=== PATIENT | male | born 1960 | race Caucasian/White ===

== ENCOUNTER → 2016-11-28 | Outpatient (CLI) | payer OTHER ==
[~2016-11-28] MED LIST: COQ-10100 MG PO; OSTERA TABLET1 EACH PO
== END | disposition home or self-care (01) ==
LOC: ORTHO 01:51
DX: M17.12 Unilateral primary osteoarthritis, left knee (principal)

== ENCOUNTER → 2017-01-30 | Outpatient (CLI) | payer OTHER | END | disposition home or self-care (01) | LOC: CT 01-25 10:00 | DX: M17.12 Unilateral primary osteoarthritis, left knee (principal); M16.12 Unilateral primary osteoarthritis, left hip; M19.072 Primary osteoarthritis, left ankle and foot ==

== ENCOUNTER → 2017-02-10 | Outpatient (CLI) | payer OTHER ==
[2017-02-10 06:28] LABS: HEMOGLOBIN 13.5 g/dl (14.0-18.0); MEAN CORPUSCULAR HGB CONC 32.9 g/dl (33.0-37.0); MEAN PLATELET VOLUME 9.7 fl (9.6-12.3); RED BLOOD COUNT 4.66 10*6/uL (4.50-5.90); RED CELL DISTRI WIDTH 13.5 % (0-14.5)
[2017-02-10 06:55] LABS: ALBUMIN 3.5 gm/dl (3.1-4.5); ALKALINE PHOSPHATASE 79 U/L (45-117); BUN 11 mg/dl (7-24); CHLORIDE 103 mmol/L (98-107); CHOLESTEROL 195 mg/dL (<200); CREATININE 0.92 mg/dL (0.70-1.30); HDL CHOLESTEROL 70 mg/dl (40-60); LDL CHOLESTEROL 103 mg/dL (9-159); POTASSIUM 4.4 mmol/L (3.5-5.1); SGOT/AST 17 IU/L (3-35); SGPT/ALT 19 U/L (12-78); SODIUM 140 mmol/L (136-145); TRIGLYCERIDES 108 mg/dl (<150); VLDL CHOLESTEROL 22 mg/dL (6-40)
[2017-02-10 08:55] LABS: VITAMIN D, 25-HYDROXY 19.4 ng/mL (30-100)
== END | disposition home or self-care (01) ==
LOC: LAB 05:59
DX: Z12.5 Encounter for screening for malignant neoplasm of prostate (principal); K21.9 Gastro-esophageal reflux disease without esophagitis; M17.12 Unilateral primary osteoarthritis, left knee; R53.83 Other fatigue; E55.9 Vitamin D deficiency, unspecified; R79.89 Other specified abnormal findings of blood chemistry

== ENCOUNTER → 2017-03-06 | Outpatient (CLI) | payer OTHER ==
[~2017-03-06] MED LIST changes: +MOTRIN 600 MG E4 TAB PO; +MULTIPLE VITAM1 EAC1 PO
[2017-03-06 15:22] LABS: BILIRUBIN NEGATIVE (NEGATIVE); BLOOD NEGATIVE (NEGATIVE); CLARITY CLEAR (CLEAR); COLOR YELLOW (YELLOW); GLUCOSE NEGATIVE (NEGATIVE); KETONE NEGATIVE (NEGATIVE); LEUKO ESTERASE NEGATIVE (NEGATIVE); NITRITE NEGATIVE (NEGATIVE); SPECIFIC GRAVITY <= 1.005 (1.005-1.030); UROBILINOGEN 0.2 E.U./dl (0.2-1.0)
[2017-03-06 15:23] LABS: BASO # 0.1 10*3/uL (0.0-0.1); BASO % 1.2 % (0.0-1.0); EOS # 0.3 10*3/uL (0.0-0.4); EOS % 4.5 % (1.0-4.0); HEMATOCRIT 39.7 % (42.0-52.0); HEMOGLOBIN 13.1 g/dl (14.0-18.0); LYMPH # 1.7 10*3/uL (1.3-4.4); LYMPH % 22.7 % (27.0-41.0); MEAN PLATELET VOLUME 9.5 fl (9.6-12.3); MONO % 12.6 % (3.0-9.0); NEUT # 4.5 10*3/uL (2.3-7.9); NEUT % 58.6 % (47.0-73.0); PLATELET COUNT AUTOMATED 336 10*3/uL (130-400); RED BLOOD COUNT 4.51 10*6/uL (4.50-5.90); RED CELL DISTRI WIDTH 13.8 % (0-14.5); WHITE BLOOD COUNT 7.6 10*3/uL (4.8-10.8)
[2017-03-06 15:31] LABS: WBC 0-2 wbc/hpf (0-5)
[2017-03-06 15:38] LABS: ALBUMIN 3.9 gm/dl (3.1-4.5); ALKALINE PHOSPHATASE 80 U/L (45-117); BUN 16 mg/dl (7-24); CHLORIDE 102 mmol/L (98-107); CREATININE 0.85 mg/dL (0.70-1.30); POTASSIUM 4.3 mmol/L (3.5-5.1); SGOT/AST 21 IU/L (3-35); SGPT/ALT 21 U/L (12-78); SODIUM 138 mmol/L (136-145); TOTAL PROTEIN 7.5 gm/dL (6.4-8.2)
== END | disposition home or self-care (01) ==
LOC: LAB 13:59
PROVIDERS: Orthopaedic Surgery
DX: M17.12 Unilateral primary osteoarthritis, left knee (principal); R79.89 Other specified abnormal findings of blood chemistry

== ENCOUNTER → 2017-05-22 | Outpatient (CLI) | payer OTHER ==
[~2017-05-22] MED LIST changes: +CELECOXIB200 M1 PO; +ENOXAPARIN40 MG/0.2 SC; +FEROSUL325 MG PO; +HYDROCODONE-AC1 EAC1 PO; +ONE DAILY1 EACH PO; +SALINE NOSE SPR45 ML NAS; +VITAMIN D-32000 UNIT PO
== END | disposition home or self-care (01) ==
LOC: RAD 11:24
DX: Z48.89 Encounter for other specified surgical aftercare (principal); Z96.652 Presence of left artificial knee joint

== ENCOUNTER → 2017-10-11 | Outpatient (CLI) | payer OTHER ==
[~2017-10-11] MED LIST changes: +CARAFATE1 G1 PO; +PROTONIX40 MG PO
== END | disposition home or self-care (01) ==
LOC: ORTHO 05:00
DX: Z47.89 Encounter for other orthopedic aftercare (principal); Z96.652 Presence of left artificial knee joint

== ENCOUNTER 2018-01-01 16:33 | Inpatient (IN) | payer OTHER ==
[~2018-01-01] VITALS: Ht 170.1 cm; Wt 114.4 kg
--- NOTE | ~2018-01-01 | O ---
[place], [place] OPERATIVE NOTE NAME: BRI MARIN UNIT #: [id number] ROOM: 403 DOCTOR: SONJA CATHERINE MD BIRTHDATE: [birth year] DOS: 01/02/2018 IDENTIFICATION: The patient has presented with anemia, abdominal pain, epigastric distress. On ibuprofen 600-800 mg daily. PROCEDURE: Today's procedure part of investigation is panendoscopy plus biopsy. PREMEDICATION: Propofol. SCOPE: Olympus forward-viewing gastroscope Q10 video. REPORT: After putting the patient in left lateral position and application of lubricant to the scope, the scope was introduced, thereafter under direct visualization advanced through the length of esophagus without difficulty. Gastric pouch was entered, gastritis was seen. Duodenum was entered. At the junction of D2-D3, there is severe inflammatory response of the skin and a punctated ulceration which if agitated oozes blood, was noticed and photographed. No biopsy from this area was obtained, not too inflamed status. Scope withdrawn back to the antrum. Antral biopsy was obtained for H. pylori. GI reflection of the scope reveals cardia to be benign. Air was suctioned out. The patient was extubated, tolerated the procedure well. IMPRESSION: Duodenal ulcer at the junction of D2-D3 and duodenitis, gastritis, anemia. PLAN AND DISCUSSION: This patient requires to be on IV Protonix 40 mg b.i.d., Carafate 2 grams slurry q.i.d. 2 hours before meals and at bedtime, full liquid diet, and I am not convinced about microcytic anemia in this 57-year-old patient with no colonoscopic documentation. I trust that we are going to organize a colonoscopy for him the next couple of days if his GI bleed does not become an issue. Thank you very much indeed. [place], [place] OPERATIVE NOTE NAME: BRI MARIN UNIT #: [id number] ROOM: 403 DOCTOR: SONJA CATHERINE MD BIRTHDATE: [birth year] SONJA CATHERINE MD CM:OPRECORD:OPERATIVE NOTE 1146 [id number] SONJA CATHERINE MD 01/02/18 1252 interface
--- NOTE | ~2018-01-01 | O ---
[place], [place] OPERATIVE NOTE [id number] UNIT #: [id number] ROOM: 403 DOCTOR: DORENE STEIN,SONJA BIRTHDATE: [birth year] DOS: 01/04/2018 HISTORY OF PRESENT ILLNESS: The patient is 57 years old who has presented with a chief complaint of anemia, known history of peptic ulcer disease as well his anemia has been microcytic. PROCEDURE: Today's procedure part of investigation is colonoscopy. PREMEDICATION: Propofol. SCOPE: Olympus forward-viewing colonoscope 10L video. REPORT: After putting the patient in left lateral position and application of lubricant to the scope, the scope was introduced. Thereafter, under direct visualization, advanced through the length of colon without difficulty. Colon mucosa and vascularity carefully examined. No ulceration. No lesion was identified. Base of the cecum explored. Appendiceal orifice identified. Ileocecal valve was defined. Mucosa intact. No bleeding. No blood loss sources in the colon. The patient extubated, tolerated the procedure well. IMPRESSION: Normal colonoscopic examination. The patient is ready for discharge. MEDICATIONS: As ordered with PPI, Protonix 40 mg daily. SONJA CATHERINE MD CM:OPRECORD:OPERATIVE NOTE 1007 [id number] SONJA CATHERINE MD 01/04/18 1157 interface
--- NOTE | ~2018-01-01 | CON ---
[place], [place] REPORT OF CONSULTATION NAME: BRI MARIN [facility] #: [id number] UNIT #: [id number] ROOM: 403 DOCTOR: DORENE STEINSONJA BIRTHDATE: [birth year] DOS: 01/02/2018 GASTROENDOSCOPIC CONSULTATION REPORT HISTORY OF PRESENT ILLNESS: The patient has presented with abdominal pain, epigastric distress, and nausea. The patient is considering this being secondary to some sausages that he has eaten a few days ago and bloated and gassy. H and H was 13 and 38, anemic indices. GFR greater than 60. Liver function tests, lipase within normal limits. Urinalysis was normal. CT scan of the abdomen and pelvis was done, inflammatory changes from gastroduodenal junction to the third portion of the duodenum, no evidence of perforation. CBC with differential again reassessed, comprehensive metabolic panel reassessed. Hemoglobin A1c is 6.1 and INR 1.0. PAST MEDICAL HISTORY: Associated gastroesophageal reflux, degenerative joint disease, obesity, osteoarthritis, iron deficiency anemia, history of peptic ulcer disease, spondylolisthesis. PAST SURGICAL HISTORY: Status post total knee prosthesis, EGDs and Rosina fundoplication. SOCIAL HISTORY: Social alcohol consumer. Carbonated beverage consumer. FAMILY HISTORY: Noncontributory. ALLERGIES: LATEX. MEDICATIONS: Ferrous sulfate and sodium chloride nasal spray. REVIEW OF SYSTEMS: HEENT: Denies double vision or blurred vision. RESPIRATORY: Denies acute shortness of breath. CARDIOVASCULAR: Denies acute chest pain. DIGESTIVE SYSTEM: Epigastric distress, dyspepsia, bloating, gassy, anemia. PHYSICAL EXAMINATION: GENERAL: An obese patient, borderline. HEENT: Head is normocephalic, nontraumatic. Mouth and buccal mucosa are benign. NECK: Supple. No thyromegaly. No cervical lymphadenopathy. CHEST: Symmetric anatomy, equal expansion. No wheeze, no rhonchi. HEART: Normal sinus rhythm. No gallop, no murmur. ABDOMEN: Obese slightly. No rebound tenderness. Bowel sounds within normal limits. EXTREMITIES: No cyanosis. No pedal edema. NEUROLOGICAL: Alert, oriented to time, place and person. LABORATORY DATA: Reviewed. Records reviewed. IMPRESSION: Epigastric abdominal pain, anemia. The patient is on ibuprofen at [place], [place] REPORT OF CONSULTATION NAME: BRI MARIN UNIT #: [id number] ROOM: 403 DOCTOR: DORENE STEIN,SONJA BIRTHDATE: [birth year] least 3-4 tablets daily for his degenerative joint disease. Most likely, we have to rule out gastroduodenal ulcers with presentation of abnormal CT scan of the abdomen in the region of duodenum, most likely duodenal ulcer. Other adjunctive diagnoses, he has a history of peptic ulcer disease in the past and gastrointestinal bleed. PLAN: Labs reviewed. Records reviewed. CT reviewed. We are going to proceed with scoping. Thank you very much. SONJA CATHERINE MD CM:CONSTR:REPORT OF CONSULTATION 1146 01/02/18 1234 interface
[~2018-01-01 16:33] MED LIST changes: -CARAFATE1 G1 PO; -PROTONIX40 MG PO
[2018-01-01 16:36] VITALS: BP 172/78
[2018-01-01 17:42] LABS: BASO % 0.4 % (0.0-1.0); HEMOGLOBIN 13.1 g/dl (14.0-18.0); LYMPH # 0.8 10*3/uL (1.3-4.4); LYMPH % 7.8 % (27.0-41.0); MEAN CORPUSCULAR HGB 30.3 pg (27.0-31.0); MEAN CORPUSCULAR HGB CONC 34.5 g/dl (33.0-37.0); MEAN PLATELET VOLUME 9.9 fl (9.6-12.3); MONO # 0.8 10*3/uL (0.1-1.0); MONO % 7.8 % (3.0-9.0); NEUT # 8.3 10*3/uL (2.3-7.9); NEUT % 83.7 % (47.0-73.0); PLATELET COUNT AUTOMATED 302 10*3/uL (130-400); RED BLOOD COUNT 4.32 10*6/uL (4.50-5.90); RED CELL DISTRI WIDTH 13.2 % (0-14.5); WHITE BLOOD COUNT 9.9 10*3/uL (4.8-10.8)
[2018-01-01 17:59] LABS: ALBUMIN 3.6 gm/dl (3.1-4.5); ALKALINE PHOSPHATASE 77 U/L (45-117); BUN 12 mg/dl (7-24); CHLORIDE 103 mmol/L (98-107); CREATININE 0.87 mg/dL (0.70-1.30); LIPASE 136 U/L (73-393); POTASSIUM 4.1 mmol/L (3.5-5.1); SGOT/AST 19 IU/L (3-35); SGPT/ALT 18 U/L (12-78); SODIUM 136 mmol/L (136-145); TOTAL PROTEIN 7.8 gm/dL (6.4-8.2)
[2018-01-01 18:25] LABS: BILIRUBIN NEGATIVE (NEGATIVE); BLOOD NEGATIVE (NEGATIVE); CLARITY SL CLOUDY (CLEAR); COLOR YELLOW (YELLOW); GLUCOSE NEGATIVE (NEGATIVE); KETONE 1+ (NEGATIVE); LEUKO ESTERASE NEGATIVE (NEGATIVE); NITRITE NEGATIVE (NEGATIVE); PH 7.5 (5.0-9.0); UROBILINOGEN 0.2 E.U./dl (0.2-1.0)
[2018-01-01 18:30] LABS: BACTERIA 1+; EPITHELIAL CELLS 0-2; RBC 0-2 rbc/hpf (0-2)
[2018-01-01 20:31] VITALS: BP 149/75
[2018-01-01 22:40] VITALS: BP 118/72
[2018-01-01 22:45] VITALS: BP 117/59
[2018-01-02] VITALS (9 sets, daily range): BP systolic 116–144; BP diastolic 59–80
[2018-01-02 06:06] LABS: ALBUMIN 3.2 gm/dl (3.1-4.5); ALKALINE PHOSPHATASE 68 U/L (45-117); BUN 10 mg/dl (7-24); CHLORIDE 103 mmol/L (98-107); CHOLESTEROL 153 mg/dL (<200); CREATININE 0.93 mg/dL (0.70-1.30); HDL CHOLESTEROL 58 mg/dl (40-60); LDL CHOLESTEROL 81 mg/dL (9-159); PHOSPHOROUS 3.6 mg/dL (2.5-4.9); POTASSIUM 3.7 mmol/L (3.5-5.1); SGOT/AST 9 IU/L (3-35); SGPT/ALT 16 U/L (12-78); SODIUM 138 mmol/L (136-145); TRIGLYCERIDES 69 mg/dl (<150); VLDL CHOLESTEROL 14 mg/dL (6-40)
[2018-01-02 06:10] LABS: BASO % 0.2 % (0.0-1.0); EOS % 0.5 % (1.0-4.0); HEMATOCRIT 37.2 % (42.0-52.0); HEMOGLOBIN 12.5 g/dl (14.0-18.0); LYMPH # 1.1 10*3/uL (1.3-4.4); LYMPH % 12.7 % (27.0-41.0); MEAN CELL VOLUME 89.4 fl (80.0-94.0); MEAN CORPUSCULAR HGB CONC 33.6 g/dl (33.0-37.0); MONO # 1.4 10*3/uL (0.1-1.0); MONO % 15.5 % (3.0-9.0); NEUT # 6.2 10*3/uL (2.3-7.9); NEUT % 70.8 % (47.0-73.0); PLATELET COUNT AUTOMATED 290 10*3/uL (130-400); RED BLOOD COUNT 4.16 10*6/uL (4.50-5.90); RED CELL DISTRI WIDTH 13.3 % (0-14.5); WHITE BLOOD COUNT 8.7 10*3/uL (4.8-10.8)
[2018-01-02 06:38] LABS: ACT PARTIAL THROMBO TIME 24.6 SECONDS (20.8-31.5)
[2018-01-02 08:14] LABS: VITAMIN D, 25-HYDROXY 25.6 ng/mL (30-100)
[2018-01-03] VITALS: BP 106/61; BP 125/72
[2018-01-03 06:42] LABS: BASO % 0.5 % (0.0-1.0); EOS # 0.2 10*3/uL (0.0-0.4); EOS % 2.1 % (1.0-4.0); HEMATOCRIT 39.7 % (42.0-52.0); HEMOGLOBIN 12.7 g/dl (14.0-18.0); LYMPH # 1.8 10*3/uL (1.3-4.4); LYMPH % 23.4 % (27.0-41.0); MEAN CELL VOLUME 92.3 fl (80.0-94.0); MEAN CORPUSCULAR HGB 29.5 pg (27.0-31.0); MEAN PLATELET VOLUME 9.7 fl (9.6-12.3); MONO # 1.1 10*3/uL (0.1-1.0); MONO % 14.1 % (3.0-9.0); NEUT # 4.6 10*3/uL (2.3-7.9); NEUT % 59.8 % (47.0-73.0); PLATELET COUNT AUTOMATED 301 10*3/uL (130-400); RED CELL DISTRI WIDTH 13.3 % (0-14.5); WHITE BLOOD COUNT 7.7 10*3/uL (4.8-10.8)
[2018-01-03 07:10] LABS: ALBUMIN 3.4 gm/dl (3.1-4.5); BUN 7 mg/dl (7-24); CHLORIDE 103 mmol/L (98-107); POTASSIUM 3.8 mmol/L (3.5-5.1); SGOT/AST 15 IU/L (3-35); SGPT/ALT 16 U/L (12-78); SODIUM 137 mmol/L (136-145); TOTAL PROTEIN 6.9 gm/dL (6.4-8.2)
[2018-01-03 07:11] LABS: ALKALINE PHOSPHATASE 69 U/L (45-117)
[2018-01-03 08:00] VITALS: BP 142/76
[2018-01-03 12:00] VITALS: BP 127/66
[2018-01-03 16:00] VITALS: BP 152/79
[2018-01-03 20:00] VITALS: BP 124/73
[2018-01-04] VITALS: BP 122/68; BP 123/60
[2018-01-04 06:42] LABS: BASO # 0.1 10*3/uL (0.0-0.1); EOS # 0.2 10*3/uL (0.0-0.4); EOS % 3.1 % (1.0-4.0); HEMATOCRIT 38.1 % (42.0-52.0); HEMOGLOBIN 12.4 g/dl (14.0-18.0); LYMPH # 1.3 10*3/uL (1.3-4.4); LYMPH % 18.1 % (27.0-41.0); MEAN CELL VOLUME 90.7 fl (80.0-94.0); MEAN CORPUSCULAR HGB 29.5 pg (27.0-31.0); MEAN CORPUSCULAR HGB CONC 32.5 g/dl (33.0-37.0); MEAN PLATELET VOLUME 9.9 fl (9.6-12.3); MONO % 14.6 % (3.0-9.0); NEUT # 4.5 10*3/uL (2.3-7.9); NEUT % 62.9 % (47.0-73.0); PLATELET COUNT AUTOMATED 287 10*3/uL (130-400); RED CELL DISTRI WIDTH 13.2 % (0-14.5); WHITE BLOOD COUNT 7.1 10*3/uL (4.8-10.8)
[2018-01-04 06:58] LABS: CHLORIDE 104 mmol/L (98-107); POTASSIUM 3.5 mmol/L (3.5-5.1); SODIUM 139 mmol/L (136-145)
[2018-01-04 07:09] LABS: ALBUMIN 3.2 gm/dl (3.1-4.5); ALKALINE PHOSPHATASE 65 U/L (45-117); BUN 6 mg/dl (7-24); CREATININE 0.91 mg/dL (0.70-1.30); SGOT/AST 17 IU/L (3-35); SGPT/ALT 14 U/L (12-78); TOTAL PROTEIN 6.8 gm/dL (6.4-8.2)
[2018-01-04 09:10] VITALS: BP 146/79
[2018-01-04 10:04] VITALS: BP 116/74
[2018-01-04 10:19] VITALS: BP 113/68
[2018-01-04 10:34] VITALS: BP 133/79
[2018-01-04 12:00] VITALS: BP 127/73
[2018-01-04] MEDS ORDERED: CARAFATE1 G1 PO (14:25)
[2018-01-04] MEDS ORDERED: PROTONIX40 MG PO (14:25)
== END 2018-01-04 14:51 | disposition home or self-care (01) | DRG 384 ==
LOC: ED 16:33 → EDHOLD 21:27 → 4E 21:27
PROVIDERS: Internal Medicine; Internal Medicine Gastroenterology; Internal Medicine Nephrology
PROC: 0DB68ZX Excision of Stomach, Via Natural or Artificial Opening Endoscopic, Diagnostic (ICD-10-PCS; principal; 2018-01-02)
PROC: 0DJD8ZZ Inspection of Lower Intestinal Tract, Via Natural or Artificial Opening Endoscopic (ICD-10-PCS; 2018-01-04)
DX: K26.9 Duodenal ulcer, unspecified as acute or chronic, without hemorrhage or perforation (principal); K29.80 Duodenitis without bleeding; R82.4 Acetonuria; R82.71 Bacteriuria; K21.9 Gastro-esophageal reflux disease without esophagitis; M19.90 Unspecified osteoarthritis, unspecified site; K29.70 Gastritis, unspecified, without bleeding; D64.9 Anemia, unspecified; E86.0 Dehydration; R73.9 Hyperglycemia, unspecified; E61.1 Iron deficiency; E55.9 Vitamin D deficiency, unspecified; Z91.040 Latex allergy status; E66.9 Obesity, unspecified; Z82.49 Family history of ischemic heart disease and other diseases of the circulatory system; Z82.5 Family history of asthma and other chronic lower respiratory diseases; Z79.899 Other long term (current) drug therapy; Z68.39 Body mass index [BMI] 39.0-39.9, adult

== ENCOUNTER → 2019-08-29 | Outpatient (CLI) | payer OTHER ==
[~2019-08-29] MED LIST changes: +CARAFATE1 G1 PO; +PROTONIX40 MG PO
== END | disposition home or self-care (01) ==
LOC: COVID19 10:03
DX: U07.1 COVID-19 (principal)

== ENCOUNTER → 2024-01-19 | Outpatient (CLI) | payer MEDICARE ==
[2024-01-19 07:53] LABS: HEMATOCRIT 43.9 % (42.0-52.0); MEAN CELL VOLUME 93.8 fl (80.0-94.0); MEAN CORPUSCULAR HGB 30.8 pg (27.0-31.0); MEAN CORPUSCULAR HGB CONC 32.8 g/dl (33.0-37.0); MEAN PLATELET VOLUME 9.6 fl (9.6-12.3); RED BLOOD COUNT 4.68 10*6/uL (4.50-5.90); RED CELL DISTRI WIDTH 13.2 % (0-14.5); WHITE BLOOD COUNT 6.5 10*3/uL (4.8-10.8)
[2024-01-19 08:39] LABS: ALKALINE PHOSPHATASE 73 U/L (46-116); BUN 15 mg/dl (9-23); CHLORIDE 103 mmol/L (98-107); CHOLESTEROL 190 mg/dL (<200); LDL CHOLESTEROL 107 mg/dL (9-159); POTASSIUM 4.6 mmol/L (3.4-5.1); SGPT/ALT 11 U/L (5-49); TRIGLYCERIDES 73 mg/dl (<150)
[2024-01-19 09:15] LABS: FREE T4 1.15 ng/dl (0.89-1.76)
== END | disposition home or self-care (01) ==
LOC: LAB 07:07
PROVIDERS: ATTEND Physician Assistant
DX: Z12.5 Encounter for screening for malignant neoplasm of prostate (principal); Z01.89 Encounter for other specified special examinations; Z79.899 Other long term (current) drug therapy